=== PATIENT | female | born 1985 | race Caucasian/White ===

== ENCOUNTER 2025-04-07 13:38 | Emergency (ER) | payer BC, MEDICAID, SELFPAY ==
--- NOTE | 2025-04-07 13:40 | XRR_ITS ---
PROCEDURE INFORMATION: Exam: XR Chest Exam date and time: 04/07/2025 1:53 PM Age: 40 years old Clinical indication: Pain; Angina pectoris; Additional info: Cp TECHNIQUE: Imaging protocol: Radiologic exam of the chest. Views: 1 view. COMPARISON: No relevant prior studies available. FINDINGS: Lungs: Unremarkable. No consolidation. Pleural spaces: Unremarkable. No pleural effusion. No pneumothorax. Heart/Mediastinum: Unremarkable. No cardiomegaly. Bones/joints: Unremarkable. XR/XR chest 1V portable [id number] IMPRESSION: No acute findings.
--- NOTE | 2025-04-07 13:45 | ECG_ITS ---
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 Measurements Intervals Cisco Rate: 66 P: 50 [place]: 144 QRS: 46 QRSD: 78 T: 32 QT: 349 QTc: 367 Interpretive Statements SINUS RHYTHM WITH SINUS ARRHYTHMIA LOW QRS VOLTAGE IN PRECORDIAL LEADS [QRS DEFLECTION < 1.0 mV IN CHEST LEADS] No previous ECG available for comparison Electronically Signed On 04-07-2025 16:40:56 CDT by Yessenia Mcdonald M.D. [id number]
[2025-04-07 13:50] VITALS: BP 119/75; PULSE 72; RESP 19; TEMP 36.8; O2SAT 97; BMI 33.2
[2025-04-07 14:49] LABS: Hematocrit 41.7 % (36-47); Hemoglobin 13.60 g/dL (11.27-16.99); Mean Corpuscular HGB Conc 32.6 g/dL (30-55); Mean Corpuscular Hemoglobin 27.8 pg (27-33); Mean Corpuscular Volume 85.3 fl (85-98); Nucleated Red Blood Cells % 0 %; Platelet Count 408 10^3/cmm (157-399); Red Blood Count 4.89 10^6/uL (3.85-5.65); White Blood Count 8.23 10^3/uL (3.29-11.43)
[2025-04-07 15:03] VITALS: BP 141/80; PULSE 70; RESP 16; O2SAT 98
[2025-04-07 15:03] LABS: INR 0.99 (0.8-1.2); Prothrombin Time 13.80 SECONDS (12.1-14.9)
[2025-04-07 15:08] LABS: Troponin(5th) Baseline < 6 ng/L (0-10)
--- NOTE | 2025-04-07 15:15 | ED_ITS ---
HPI - Chest Pain 2 General: Chief Complaint: Chest Pain Stated Complaint: CP Time Seen by Provider: 04/07/25 13:39 Source: patient Mode of arrival: ambulatory Limitations: no limitations History of Present Illness: 32-year-old female states she had an epi sode of chest pain roughly 3 hours ago states she had a vibrating feeling in her left chest is since resolved. She denies any severe pain denies any shortness of breath. She denies any cough or hemoptysis. Denies any fevers. Denies any worse improving factors denies any history of coronary artery disease Associated symptoms: Deny abdominal pain, dyspnea, fever(s), nausea or vomiting Related Data Home Medications ?Medication ?Instructions ?Recorded ?Confirmed No Known Home Medications 04/07/2503/23 Allergies Allergy/AdvReac Type Severity Reaction Status Date / Time No Known Allergies Allergy Verified 04/07/25 13:53 Review of Systems 2 Const: Denies: fever(s), chills, body aches or change in appetite ENMT: Denies: throat pain or dental pain Card: Reports: chest pain Resp: Denies: dyspnea GI: Denies: abdominal pain, nausea, vomiting or diarrhea Musc: Denies: neck pain or back pain Skin/Breast: Denies: rash Neuro: Denies: headache(s) Physical Exam 2 Const: COMMON NORMALS: no acute distress, patient oriented x3 and healthy appearing HENMT: COMMON NORMALS: normocephalic and atraumatic HEAD & SCALP: n ormocephalic and atraumatic Eye: COMMON NORMALS: conjunctivae normal CONJUNCTIVA: Yes conjunctivae normal Neck/C-Spine: COMMON NORMALS: full ROM and supple Chest: COMMONS NORMALS: normal inspection of the chest and normal palpation of entire chest wall Resp: COMMON NORMALS: normal respiratory effort, No retractions, No use of accessory muscles and clear to auscultation bilaterally AUSCULTATION: clear to auscultation bilaterally Cardio: COMMON NORMALS: regular rate, regular rhythm and No murmurs present (Cardio) RATE: regular rate RHYTHM: regular rhythm GI: COMMON NORMALS: Normal to inspection, nondistended, normoactive bowel sounds present, Soft to palpation, non-tender and no masses PALPATION: Yes Soft to palpation Extremity: COMMON NORMALS: normal to inspection and full ROM Neuro: COMMON NORMALS: patient oriented x3, moves all extremities and no focal motor deficits Psych: COMMON NORMALS: mental status grossly normal, Normal thought process present and cooperative THOUGHT PROCESS: Normal thought process present Skin: COMMON NORMALS: no rashes or lesions noted and no wounds GENERAL SKIN EXAM: no rashes or lesions noted Course 2 Vital Signs: Vital signs: Vital Signs Temperature 98.3 F 04/07/25 13:50 Pulse Rate 70 04/07/25 15:03 Respiratory Rate 16 04/07/25 15:03 Blood Pressure 141/80 04/07/25 15:03 Pulse Oximetry 98 04/07/25 15:03 Oxygen Delivery Me thod Room Air 04/07/25 13:50 MDM - Chest Pain Medical Decision Making Patient presents here chest pain atypical in nature she has been pain-free here troponins negative EKG x-ray are normal no signs of ACS no signs of pulm embolism patient stable for discharge follow-up PCP return if worsening. Medical Records I reviewed the patient's medical records. Lab Data I reviewed the patient's lab results. 04/07/25 14:34 04/07/25 14:34 Radiology Impressions Chest X-Ray 04/07/25 13:40 IMPRESSION: No acute findings. Laboratory Results WBC 8.23 10^3/uL (3.29-11.43) 04/07/25 14:34 RBC 4.89 10^6/uL (3.85-5.65) 04/07/25 14:34 Hgb 13.60 g/dL (11.27-16.99) 04/07/25 14:34 Hct 41.7 % (36-47) 04/07/25 14:34 MCV 85.3 fl (85-98) 04/07/25 14:34 MCH 27.8 pg (27-33) 04/07/25 14:34 MCHC 32.6 g/dL (30-55) 04/07/25 14:34 RDW 12.4 % (12.1-15.1) 04/07/25 14:34 Plt Count 408 10^3/cmm (157-399) H 04/07/25 14:34 MPV 8.5 fL (7.4-10.4) 04/07/25 14:34 Neut % (Auto) 62.2 % 04/07/25 14:34 Lymph % (Auto) 29.8 % 04/07/25 14:34 [place] % (Auto) 5.5 % 04/07/25 14:34 Eos % (Auto) 1.7 % 04/07/25 14:34 Baso % (Auto) 0.4 % 04/07/25 14:34 Neut # (Auto) 5.13 10^3/uL (1.8-7.7) 04/07/25 14:34 Lymph # (Auto) 2.5 10^3/uL (0.8-4.8) 04/07/25 14:34 [place] # (Auto) 0.5 10^3/uL (0.2-0.9) 04/07/25 14:34 Eos # (Auto) 0.1 10^3/uL (0.0-0.8) 04/07/25 14:34 Baso # (Auto) 0.0 10^3/uL (0.0-0.1) 04/07/25 14:34 Nucleated RBC % (auto) 0 % 04/07/25 14:34 Nucleated RBCs # 0.0 /100WBC 04/07/25 14:34 PT 13.80 SECONDS (12.1-14.9) 04/07/25 14:34 INR 0.99 (0.8-1.2) 04/07/25 14:34 Sodium 142 mmol/L (136-145) 04/07/25 14:34 Potassium 4.2 mmol/L (3.5-5.1) 04/07/25 14:34 Chloride 105 mmol/L (98-107) 04/07/25 14:34 Carbon Dioxide 22 mmol/L (22-29) 04/07/25 14:34 Anion Gap 19.2 (5-19) H 04/07/25 14:34 BUN 13 mg/dL (6-20) 04/07/25 14:34 Creatinine 0.6 mg/dL (0.5-0.9) 04/07/25 14:34 GFR Calculation 111.9 mL/min (90-130) 04/07/25 14:34 Glucose 94 mg/dL (65-115) 04/07/25 14:34 Calculated Osmolality 294 mOsm/kg (285-295) 04/07/25 14:34 Calcium 9.7 mg/dL (8.5-10.5) 04/07/25 14:34 Total Bilirubin 0.5 mg/dL (0.15-1.2) 04/07/25 14:34 AST 16 U/L (0-32) 04/07/25 14:34 ALT 12 U/L (0-33) 04/07/25 14:34 Alkaline Phosphatase 67 U/L (35-105) 04/07/25 14:34 Troponin T Baseline < 6 ng/L (0-10) 04/07/25 14:34 Total Protein 7.8 g/dL (6.6-8.7) 04/07/25 14:34 Albumin 4.8 g/dL (3.5-5.2) 04/07/25 14:34 Globulin 3.0 g/dL (1.3-4.6) 04/07/25 14:34 Lipase 35 U/L (13-60) 04/07/25 14:34 All radiology interpretation(s) finalized by discharge EKG Data EKG 1: I personally reviewed and interpreted this EKG as follows: EKG interpretation date: 04/07/25 EKG interpretation time: 13:45 Interpretation: nsr hr [address] or t wave abnormalities qrs 78 qtc 362 Discharge Plan Discharge Patient Disposition: Home Clinical Impression: Chest pain Condition: Stable Prescriptions: No Action No Known Home Medications Discharge Orders: Discharge ED (Routine); Ordered 04/07/25 Ordered By: Abelardo Guerrero Referrals: Raudel Martinez MD [Primary Care Provider, [facility]] - 4-7 days Discharge Diet: Advance as tolerated Discharge Activity: Resume usual activity Patient Instructions: Chest Pain (ED) Print Language: Belarusian Coding Level of Care Code ED 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
[2025-04-07 15:19] LABS: Alanine Aminotransferase 12 U/L (0-33); Albumin Level 4.8 g/dL (3.5-5.2); Alkaline Phosphatase 67 U/L (35-105); Aspartate Amino Transferase 16 U/L (0-32); Blood Urea Nitrogen 13 mg/dL (6-20); Calcium 9.7 mg/dL (8.5-10.5); Carbon Dioxide 22 mmol/L (22-29); Chloride 105 mmol/L (98-107); Creatinine Clr Calc Pharmacy 116.6926; Globulin 3.0 g/dL (1.3-4.6); Glucose 94 mg/dL (65-115); Lipase 35 U/L (13-60); Osmolality Calculated 294 mOsm/kg (285-295); Sodium 142 mmol/L (136-145); Total Protein 7.8 g/dL (6.6-8.7)
[2025-04-07 15:25] LABS: Anion Gap 19.2 (5-19); Potassium 4.2 mmol/L (3.5-5.1)
[2025-04-07 15:55] VITALS: BP 117/68; PULSE 70; RESP 16; O2SAT 96
== END 2025-04-07 15:56 | disposition home or self-care (01) ==
PROVIDERS: Emergency Provider Emergency Medicine; PCP Family Medicine
DX: R07.9 Chest pain, unspecified (principal)
CPT/HCPCS: 36415; 71045; 80053; 83690; 84484; 85025; 85610; 93005; 99285